=== PATIENT | female | born 1990 | race Caucasian/White ===

== ENCOUNTER 2016-05-29 17:45 | Emergency (ER) | payer OTHER ==
[~2016-05-29] VITALS: Ht 154.9 cm; Wt 65.3 kg
[2016-05-29] MEDS ORDERED: MULT1TAB8 PO (18:19)
[2016-05-29] MEDS ORDERED: MULT1TAB18 PO (18:19)
[2016-05-29] MEDS ORDERED: CALC500C8 PO (18:19)
[2016-05-29] MEDS ORDERED: STRA100C PO (18:19)
[2016-05-29] MEDS ORDERED: PROA1AER INH (18:19)
[2016-05-29] MEDS ORDERED: ALBUTEROL SULFATE 2.5 MG/0.5 ML INH NEB SOLN INH ONE (19:30)
[2016-05-29] MEDS ORDERED: ACETAMINOPHEN 325 MG TAB PO ONE (19:30)
[2016-05-29] MEDS ORDERED: ALBUTEROL SULFATE 2.5 MG/0.5 ML INH NEB SOLN NEB ONE (20:30)
[2016-05-29] MEDS ORDERED: AZITHROMYCIN 250 MG TAB PO ONE (21:15)
[2016-05-29] MEDS ORDERED: predniSONE 20 MG TAB PO ONE (21:15)
[2016-05-29 22:20] VITALS: BP 130/89
[2016-05-29] MEDS ORDERED: ZITHTAB PO (22:27)
[2016-05-29] MEDS ORDERED: MEDR4PAK PO (22:27)
[2016-05-29] MEDS ORDERED: ACETAMINOPH W/CODEINE #3 TAB UD PO ONE (22:30)
--- NOTE | 2016-05-30 07:29 | REP ---
CHEST PA AND LATERAL: 05/29/2016. Clinical history: Cough and chills. Bronchitis. Findings: There were no prior studies. The two views show the lungs well inflated. There is some minor perihilar changes of bronchitis or reactive airway disease. No effusion or dense consolidation. The heart, mediastinal and hilar contours are normal. Airway intact. Bony thorax shows no focal lesion or acute compression deformity. Impression: 1. Perihilar changes of bronchitis or reactive airway disease without dense consolidation or effusion. Signed by Jose Alejandro Ogden MD 05/30/2016 04:38 P
== END 2016-05-29 23:12 | disposition home or self-care (01) ==
LOC: M ED 19:48
DX: J20.9 Acute bronchitis, unspecified (principal); J02.9 Acute pharyngitis, unspecified; F90.9 Attention-deficit hyperactivity disorder, unspecified type; J45.909 Unspecified asthma, uncomplicated; Z79.899 Other long term (current) drug therapy; Z88.0 Allergy status to penicillin